=== PATIENT | female | born 2000 | race Caucasian/White ===

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

== ENCOUNTER 2021-05-04 11:20 | Emergency (ER) | payer OTHER ==
[~2021-05-04] VITALS: Ht 152.4 cm; Wt 47.2 kg
[2021-05-04 11:55] VITALS: BP 114/62
--- NOTE | 2021-05-04 11:59 | NUR ---
PT SENT TO LOBBY
[2021-05-04] MEDS ORDERED: IBUP-1842 PO (14:07)
[2021-05-04 14:59] VITALS: BP 105/55
--- NOTE | 2021-05-04 14:59 | NUR ---
Patient discharged with v/s stable. Written and verbal after care instructions given and explained ABOUT FOOT SPRAIN. Patient alert, oriented and verbalized understanding of instructions. Ambulatory with steady gait WITH CRUTCHES PROVIDED. All questions addressed prior to discharge. ID band removed. Patient advised to follow up with PMD. Rx of MOTRIN given. Patient educated on indication of medication including possible reaction and side effects. Opportunity to ask questions provided and answered.
== END 2021-05-04 14:59 | disposition home or self-care (01) ==
LOC: MED 11:20
DX: S93.601A Unspecified sprain of right foot, initial encounter (principal); Z79.1 Long term (current) use of non-steroidal anti-inflammatories (NSAID); W10.8XXA Fall (on) (from) other stairs and steps, initial encounter; Y93.01 Activity, walking, marching and hiking; Y92.89 Other specified places as the place of occurrence of the external cause; Y99.8 Other external cause status
CPT/HCPCS: 73630; 99283